=== PATIENT | female | born 1955 | race Caucasian/White ===

== ENCOUNTER → 2016-12-11 | Outpatient (CLI) | payer BC, OTHER ==
[~2016-12-11] MED LIST: BIOTIN1 MG; BIOTIN1 MG PO; BIOTIN5 M1 PO; BISACODYL SUPP10 MG RECTAL; CALCIUM 600 +1 EAC1 PO; ESTRACE1 MG PO; FIRST-PROGESTER25 MG; FISH OIL 1,001000 M2 PO; GAS RELIEF 8080 MG PO; HYDROCODONE-AP1 EAC6 PO; IBUPROFEN 600600 M1 PO; LISINOPRIL10 MG; LISINOPRIL20 MG PO; ONE-A-DAY WOMENS PO; PROVERA2.5 MG PO; TUMS PO; VITAMIN D1000 UNI2 PO; ZYRTEC10 MG PO
== END ==
LOC: ULTRA 08:08
DX: K76.89 Other specified diseases of liver (principal)

== ENCOUNTER → 2018-08-02 | Outpatient (CLI) | payer OTHER ==
[2018-08-02 11:51] LABS: CREATININE 1.2 mg/dL (0.6-1.0)
== END ==
LOC: CAT 11:17
PROVIDERS: Family Medicine
DX: N28.1 Cyst of kidney, acquired (principal); K76.89 Other specified diseases of liver

== ENCOUNTER → 2018-08-15 | Outpatient (CLI) | payer OTHER | LOC: CAT 10:21 | DX: Z13.6 Encounter for screening for cardiovascular disorders (principal) ==

== ENCOUNTER → 2019-07-03 | Outpatient (CLI) | payer OTHER | LOC: ULTRA 10:11 | DX: N28.1 Cyst of kidney, acquired (principal); I10 Essential (primary) hypertension; Z88.2 Allergy status to sulfonamides ==

== ENCOUNTER → 2019-07-31 | Outpatient (CLI) | payer OTHER | LOC: SJCVC 14:50 | DX: I25.10 Atherosclerotic heart disease of native coronary artery without angina pectoris (principal); E78.00 Pure hypercholesterolemia, unspecified; K21.0 Gastro-esophageal reflux disease with esophagitis; M25.512 Pain in left shoulder; R93.1 Abnormal findings on diagnostic imaging of heart and coronary circulation; Z79.899 Other long term (current) drug therapy; Z87.891 Personal history of nicotine dependence; Z82.49 Family history of ischemic heart disease and other diseases of the circulatory system ==

== ENCOUNTER → 2020-03-12 | Outpatient (CLI) | payer OTHER | LOC: SJCVCIMAG 10:00 | PROVIDERS: ATTEND Internal Medicine Cardiovascular Disease | DX: I25.10 Atherosclerotic heart disease of native coronary artery without angina pectoris (principal); I10 Essential (primary) hypertension; E78.00 Pure hypercholesterolemia, unspecified; E78.2 Mixed hyperlipidemia; Z78.0 Asymptomatic menopausal state; Z87.891 Personal history of nicotine dependence; Z82.49 Family history of ischemic heart disease and other diseases of the circulatory system ==

== ENCOUNTER → 2020-12-17 | Outpatient (CLI) | payer OTHER | LOC: SJCVC 10:27 | PROVIDERS: ATTEND Internal Medicine Cardiovascular Disease | DX: R93.1 Abnormal findings on diagnostic imaging of heart and coronary circulation (principal); I10 Essential (primary) hypertension; E78.00 Pure hypercholesterolemia, unspecified; Z87.891 Personal history of nicotine dependence; Z79.899 Other long term (current) drug therapy; Z79.82 Long term (current) use of aspirin; Z88.2 Allergy status to sulfonamides; Z88.1 Allergy status to other antibiotic agents ==